=== PATIENT | female | born 1980 | race Caucasian/White ===

== ENCOUNTER 2025-01-19 09:33 | Emergency (ER) | payer OTHER, SELFPAY ==
[2025-01-19 09:41] VITALS: BP 144/87
--- NOTE | 2025-01-19 09:59 | ED.GENMED ---
History of Present Illness
General
Chief Complaint: Fainting/Passed Out
Source: patient
Exam Limitations: none
Time Seen by Provider: 01/19/25 09:58
History of Present Illness
History of Present Illness:
44yoF with a history of substance use presenting for detox evaluation. Patient admits to taking oxycodone off the street for 'a while.' She is taking 30mg 3-4x daily. She last took 60mg of oxycodone this morning. She also drinks alcohol
intermittently and will drink a few shots to help her sleep at night. She feels terrible and is requesting detox. Patient reports that she 'passed out' this morning. She states her vision went blurry when she was reading the phone book. She then
stood up and the room started spinning and fell to her knees. She is not sure if she truly lost consciousness but if she did it was a few seconds at most. She denies any injuries or head strike. No dizziness currently. Patient admits to not
eating much recently. She denies any chest pain or shortness of breath. The triage note documents suicidal ideations although she denies this on my encounter. She states she does not want to hurt herself and she just wants to stop using drugs.
Phy Exam
General Physical Exam
General Presentation: well appearing and no apparent distress
General age: appears stated age
General Skin: warm and dry
General Habitus: normal
General Mental: alert
ENT Exam
ENT Exam: TM's normal
Cardiovascular Exam
Cardiovascular Exam: regular rate/rhythm and no murmur
Pulmonary Exam
Pulmonary Exam: lungs clear, no respiratory distress, no rales, no crackles and no rhonchi
Neurological Exam
Neurological Exam: alert
[place] Coma Scale
Eye Opening: Spontaneous
Verbal Response: Oriented
Motor Response: Obeys Commands
GCS Total Score: 15
Skin Exam
Skin Exam: normal color and warm/dry
Psychiatric Exam
Psychiatric Exam: other (Admits to feeling depressed. Denies SI.)
Course
Orders/Labs/Results
Orders:
Orders
01/19/25
Electrocardiogram (*1) Stat
Comment: DONE EMR
01/19/25 10:09
0.9% Sodium Chloride 1000 ml [Nss] 1,000 ml IV BOLUS
01/19/25 10:11
Test Result ONCE
01/19/25 11:01
Complete Blood Count/With Diff Urgent
Comprehensive Metabolic Panel Urgent
HCG, Serum Qualitative Screen Urgent
Magnesium Urgent
Troponin I Urgent
01/19/25 12:22
Fentanyl, Urine Urgent
Urine Drug Abuse Screen Urgent
Date Specimen was Collected: 01/19/25
Time Specimen was Collected: 12:21
01/19/25 13:00
Nicotine [Nicoderm Transdermal] 21 mg TRANSDERM DAILY
Abnormal Lab Results
01/19/25 01/19/25
11:01 12:22
RBC 5.55 H 10^6/uL
(4.20-5.40)
Hgb 16.9 H g/dL
(12.0-16.0)
Hct 48.9 H %
(37.0-47.0)
Monocytes % 10.0 H %
(1.7-9.3)
Chloride 97 L mmol/L
(98-107)
Glucose 125 H mg/dl
(70-99)
Ur Oxycodone Screen Positive H
(Negative)
Urine Fentanyl Screen Positive H
(Negative)
01/19/25 11:01
01/19/25 11:01
Vital Signs
Initial and Last Documented VS:
Initial Vital Signs
Temp Pulse Resp BP Pulse Ox
97.7 F 82 18 144/87 99
01/19/25 09:41 01/19/25 09:41 01/19/25 09:41 01/19/25 09:41 01/19/25 09:41
Last Documented Vital Signs
Temp Pulse Resp BP Pulse Ox
97.7 F 77 13 118/70 99
01/19/25 09:41 01/19/25 13:45 01/19/25 13:45 01/19/25 13:00 01/19/25 09:41
MDM/Problems Addressed
Differential Diagnosis Includes:
44yoF here requesting detox from oxycodone. Has not been feeling well or eating much. Also 'passed out' today. Started to feel dizzy upon standing and fell. Unsure if she actually lost consciousness. She was triaged to crisis although she denies any
suicidal thoughts on my assessment. She states she is mainly depressed because she wants to stop taking oxycodone. VSS. She is well-appearing in no acute distress. Exam reassuring. Differential diagnosis includes but is not limited to:
Dehydration, orthostatic hypotension, anemia, opioid use disorder
Initial ED plan: Check cardiac labs, magnesium, HCG, UDS, and EKG. IV fluid bolus. Will consult [facility].
*EKG
Interpreted by ED Provider?: Yes
EKG Intrepretation Date: 01/19/25
Heart Rate: 68
Rate: normal
Rhythm: sinus
[place]: left axis deviation
Interval: normal interval
QRS Pattern: normal QRS
Ischemia: no ischemia
*Critical Care Note
Total Time (30-74mins, 75-104mins- exclusive of procedures): Not Applicable
Update Note
Update Note:
EKG shows normal sinus rhythm without ischemic changes and troponin within normal limits. Labs unremarkable. UDS is positive for oxycodone and fentanyl. Patient medically cleared for residential treatment. Patient was evaluated by [facility] and she
was ultimately accepted by [facility]. Patient to be picked up from [facility] staff for further care. She was discharged in stable condition.
ED Attending Note
-
Portions of this chart may have been created with voice recognition software.� Occasional wrong word or��sound alike� substitutions may have occurred due to the inherent limitations of voice recognition software.
Discharge Plan
Departure
Patient Disposition: Home (Routine Discharge)
Date of Disposition: 01/19/25
Time of Disposition: 13:43
Patient with high blood pressure during this ER visit?: No
Discharge Problem:
Opioid use, Near syncope
Instructions: Opioid use disorder
Referrals:
Mahi Delgado CRNP [Family Provider] -
Activity Restrictions/Additional Instructions:
You are medically cleared for residential treatment. You will be picked up and transported to [facility] for further treatment.
Interventions
Interventions:
*Risk Screen - Suicide Last Done: 01/19/25 11:04
*General Assessment Last Done: 01/19/25 09:41
*Neglect/Abuse Screening Last Done: 01/19/25 14:21
*ED- Fall Risk Assessment Last Done: 01/19/25 14:21
*ED COVID-19 Vaccine History Last Done: 01/19/25 14:21
*Nursing Disposition Last Done: 01/19/25 14:21
ED- Cardiac Assessment Last Done: 01/19/25 11:05
ED- Neurological Assessment Last Done: 01/19/25 11:05
Discharge Date and Time
Discharge Date/Time: 01/19/25 14:22
Print Language: MALAY
[2025-01-19 10:53] VITALS: BP 125/95
[2025-01-19 11:00] VITALS: BP 131/93
[2025-01-19] MEDS: NSS 1000 IV (11:03)
[2025-01-19 11:04] VITALS: BMI 21.6
[2025-01-19 11:18] LABS: % Basophils 1.5 % (0-2); % Eosinophils 2.2 % (0-6); % Immature Granulocytes 0.5 % (0-0.5); % Lymphocytes 33.1 % (20.5-51.1); % Neutrophils 52.7 % (42.2-75.2); Absolute Basophils 0.1 10^3/uL (0-0.2); Absolute Eosinophils 0.1 10^3/uL (0-0.7); Absolute Monocytes 0.6 10^3/uL (0.1-0.6); Absolute Neutrophils 3.2 10^3/uL (1.4-6.5); Hematocrit 48.9 % (37.0-47.0); Hemoglobin 16.9 g/dL (12.0-16.0); Mean Corp Hgb Conc. 34.6 g/dL (33.0-37.0); Mean Corpuscular Hgb 30.5 pg (27.0-31.0); Mean Corpuscular Volume 88.1 fL (81.0-99.0); Mean Platelet Volume 9.7 fL (7.4-10.4); Nucleated Red Blood Cells % 0 %; Platelet Count 279 10^3/uL (130-400); Red Blood Cell Count 5.55 10^6/uL (4.20-5.40)
[2025-01-19 11:32] LABS: ALT (SGPT) 12 U/L (0-35); AST (SGOT) 24 U/L (14-36); Albumin 4.6 g/dl (3.5-5.0); Alkaline Phosphatase 115 U/L (38-126); Blood Urea Nitrogen 7 mg/dl (7-17); Calcium 9.9 mg/dl (8.4-10.2); Carbon Dioxide 29 mmol/L (22-30); Chloride 97 mmol/L (98-107); Estimated Creatinine Clearance 83 ml/min; Glucose 125 mg/dl (70-99); Magnesium 1.8 mg/dl (1.6-2.3); Potassium 3.8 mmol/L (3.5-5.1); Sodium 135 mmol/L (135-145); Total Bilirubin 0.9 mg/dl (0.2-1.3); Total Protein 7.9 g/dl (6.3-8.2); eGFR > 60.00
[2025-01-19 11:33] LABS: HCG, Serum Qualitative Screen Negative
[2025-01-19 11:41] LABS: Troponin I < 0.012 ng/ml
[2025-01-19 12:00] VITALS: BP 114/92
[2025-01-19] MEDS: NICODERM TRANSDERMAL 21 MG TRANSDERM (12:17)
[2025-01-19 13:00] VITALS: BP 118/70
[2025-01-19 13:14] LABS: Amphetamines Negative (Negative); Barbiturates Negative (Negative); Benzodiazepines Negative (Negative); Buprenorphine Negative (Negative); Cocaine Negative (Negative); Marijuana Negative (Negative); Methadone Negative (Negative); Methamphetamines Negative (Negative); Opiates Negative (Negative); Phencyclidine Negative (Negative); Tricyclic Antidepressants Negative (Negative)
[2025-01-19 13:32] LABS: Fentanyl, Urine Positive (Negative)
== END 2025-01-19 14:22 ==
LOC: EMR 09:33
PROVIDERS: Physician Assistant; EMERGENCY PHYSICIAN Emergency Medicine; FAMILY PHYSICIAN Nurse Practitioner
DX: F11.90 Opioid use, unspecified, uncomplicated (principal); R55 Syncope and collapse
CPT/HCPCS: 96360; 99285; 80053; 80306; 80307; 83735; 84484; 84703; 85025; 93005